=== PATIENT | female | born 1975 | race Caucasian/White ===

== ENCOUNTER → 2017-03-20 | Outpatient (CLI) | payer MEDICARE, MEDICAID ==
[~2017-03-20] MED LIST: CATAPRES-DPS0.2 MG PO; NORVASC5 MG PO; PEPCID40 MG PO
== END | disposition home or self-care (01) ==
LOC: RAD.S 10:58
DX: R05 Cough (principal); R06.02 Shortness of breath

== ENCOUNTER 2017-03-21 02:12 | Emergency (ER) | payer MEDICARE, MEDICAID ==
--- NOTE | 2017-03-21 07:31 | ER ---
ADMIT: 03/21/2017 RM/LOC: ER [facility] MR#: [id number] [address] [id number] [address] SUGGS [address] [place] [address] Emergency Room Report SEX: F AGE: 41 : 1975 DATE: 03/21/2017 Patient is a 41-year-old end-stage renal disease, dialysis patient, complaining of left lower quadrant abdominal flank pain, associated with nausea, and no fever or chills for the past 24 hours. The patient does not make any urine. Exam remarkable for nontoxic, afebrile female, slightly tender to palpation, left lower quadrant. CT abdomen and pelvis without contrast shows atrophic kidneys, fat-containing umbilical hernia, diverticulosis and calcified uterine fibroid, all unchanged from previous CT of 33 months ago. WBC 4.3, lactic 1.3, CRP 0.59, BN peptide 22,413, lipase 211. The patient was given IV fluids, Zofran, Dilaudid, Protonix with improvement of pain. Home with hydrocodone 5/325 as needed #15. Follow up Dr. Quinones this week. Panda Moise MD/ viral JOB #: [id number] CC: Panda Moise MD, Attending Physician Handy Brewer MD, Family Physician MD Yair Meier MD
== END 2017-03-21 03:58 | disposition home or self-care (01) ==
LOC: ER 02:12
DX: R10.32 Left lower quadrant pain (principal); I12.0 Hypertensive chronic kidney disease with stage 5 chronic kidney disease or end stage renal disease; N18.6 End stage renal disease; Z99.2 Dependence on renal dialysis